=== PATIENT | male | born 1990 | race Hispanic/Latino ===

== ENCOUNTER 2018-10-11 14:28 | Emergency (ER) | payer SELFPAY ==
--- NOTE | 2018-10-11 15:44 | EDPHYS ---
Physician Documentation [facility] Name: Bandar Jon Age: 28 yrs Sex: Male : 1990 Arrival Date: 10/11/2018 Time: 14:34 Bed 27 Private MD: ED Physician Jose Hill HPI: 10/11 15:20 This 28 yrs old Male presents to ER via Ambulatory with complaints of Anxiety, cp Drainage From Ear. 15:20 The patient presents with drainage, that is purulent. cp 15:20 The complaints affect the left ear. Onset: The symptoms/episode began/occurred at an cp unknown time. Associated signs and symptoms: Pertinent negatives: cough, fever, rhinorrhea, sinus trouble, sore throat, vertigo, vomiting. Severity of symptoms: in the emergency department the symptoms are unchanged despite home interventions. Patient also requesting note for work after leaving early today for having panic attack. Historical: - Allergies: 14:54 No Known Allergies; aa5 - PMHx: 14:54 None; aa5 - PSHx: 14:54 None; aa5 - Immunization history:: Adult Immunizations unknown. - Social history:: Smoking status: Patient uses tobacco products, smokes one-half pack cigarettes per day. - Ebola Screening: : No symptoms or risks identified at this time. ROS: 15:24 Constitutional: Negative for body aches, chills, fever, poor PO intake. cp 15:24 Eyes: Negative for injury, pain, redness, and discharge. cp 15:24 ENT: Positive for drainage from ear(s), Negative for rhinorrhea, difficulty swallowing, difficulty handling secretions. 15:24 Cardiovascular: Negative for chest pain, palpitations. 15:24 Respiratory: Negative for cough, shortness of breath, wheezing. 15:24 Abdomen/GI: Negative for abdominal pain, nausea, vomiting, and diarrhea. 15:24 Skin: Negative for cellulitis, rash. 15:24 Neuro: Negative for altered mental status, headache, weakness. 15:24 All other systems are negative. 15:24 All other systems are negative. Exam: 15:28 Constitutional: The patient appears in no acute distress, alert, awake, non-toxic, well cp developed, well nourished. 15:28 Head/Face: Normocephalic, atraumatic. cp 15:28 Eyes: Periorbital structures: appear normal, Conjunctiva: normal, no exudate, no injection, Sclera: no appreciated abnormality, Lids and lashes: appear normal, bilaterally. 15:28 ENT: External ear(s): are unremarkable, Ear canal(s): purulent discharge, in the left canal, TM's: rupture, on the left, with purulent discharge, Examination of the other ear shows no obvious abnormality, Nose: is normal, Mouth: is normal, Posterior pharynx: is normal, airway is patent, no erythema, no exudate. 15:28 Neck: ROM/movement: is normal, is supple, without pain, no range of motions limitations, no meningismus, no nuchal rigidity, Lymph nodes: no appreciated lymphadenopathy. 15:28 Chest/axilla: Inspection: normal, Palpation: is normal, no crepitus, no tenderness. 15:28 Cardiovascular: Rate: normal, Rhythm: regular. 15:28 Respiratory: the patient does not display signs of respiratory distress, Respirations: normal, no use of accessory muscles, no retractions, no splinting, no tachypnea, labored breathing, is not present, Breath sounds: are clear throughout, no decreased breath sounds, no stridor, no wheezing. 15:28 Abdomen/GI: Exam negative for discomfort, distension, guarding, Inspection: abdomen appears normal. 15:28 Skin: cellulitis, is not appreciated, no rash present. 15:28 Neuro: Orientation: to person, place \T\ time. Mentation: lucid, able to follow commands, Cerebellar function: is grossly normal, Motor: moves all fours, strength is normal, Sensation: is normal. Vital Signs: 14:54 BP 129 / 95; Pulse 92; Resp 18 S; Temp 98.1(O); Pulse Ox 100% on R/A; Weight 81.65 kg aa5 (M); Height 5 ft. 11 in. (180.34 cm) (R); Pain 0/10; 16:01 BP 133 / 83; Pulse 90; Resp 18; Pulse Ox 100% on R/A; Pain 0/10; mg2 14:54 Body Mass Index 25.10 (81.65 kg, 180.34 cm) aa5 MDM: 15:15 Patient medically screened. cp 15:40 Differential diagnosis: otitis media, otitis externa, ruptured TM, foreign body, cp cerumen impaction. 15:42 Data reviewed: vital signs, nurses notes, and as a result, I will discharge patient. cp 15:43 Counseling: I had a detailed discussion with the patient and/or guardian regarding: the cp historical points, exam findings, and any diagnostic results supporting the discharge/admit diagnosis, the need for outpatient follow up, an ENT specialist, to return to the emergency department if symptoms worsen or persist or if there are any questions or concerns that arise at home. Administered Medications: No medications were administered Disposition: 10/11/18 15:44 Discharged to Home. Impression: Acute suppurative otitis media with spontaneous rupture of ear drum - Left. - Condition is Stable. - Discharge Instructions: Otitis Media, Adult, Form - Excuse from Work, School, or Physical Activity. - Prescriptions for Amoxicillin 875 mg Oral Tablet - take 1 tablet by ORAL route every 12 hours for 10 days; 20 tablet. Ciprodex 0.3- 0.1 % Otic Drops, Suspension - instill 4 drops by OTIC route every 12 hours for 7 days , for ears ONLY. instill drops in left ear canal as directed; 1 Container. - Medication Reconciliation Form, Thank You Letter, Antibiotic Education, Prescription Opioid Use, Work release form form. - Follow up: Sulema Goddard MD; When: 1 week; Reason: left ear otitis media with ear drum rupture. - Problem is an ongoing problem. - Symptoms have improved. - Notes: wear ear plugs while showering, no swimming Addendum: 10/18/2018 06:29 Co-signature as Attending Physician, Jose Hill MD. g s Signatures: Gabriella Campbell, RN RN aa5 Johnathan Harmon PA PA Jose Malloy MD MD gs Riley Galvan, RN RN mg2 Corrections: (The following items were deleted from the chart) 10/11 16:02 15:44 10/11/2018 15:44 Discharged to Home. Impression: Acute suppurative otitis media mg2 with spontaneous rupture of ear drum - Left. Condition is Stable. Forms are Medication Reconciliation Form, Thank You Letter, Antibiotic Education, Prescription Opioid Use. Follow up: Sulema Goddard; When: 1 week; Reason: left ear otitis media with ear drum rupture. Problem is an ongoing problem. Symptoms have improved. cp
--- NOTE | 2018-10-11 15:44 | ER ---
Nurse's Notes [facility] Name: Bandar Jon Age: 28 yrs Sex: Male : 1990 Arrival Date: 10/11/2018 Time: 14:34 Bed 27 Private MD: Diagnosis: Acute suppurative otitis media with spontaneous rupture of ear drum-Left Presentation: 10/11 14:53 Presenting complaint: Patient states: "I had a panic attack today". Pt states "I've aa5 been having left ear drainage for about 4 or 5 years now". Pt denies pain. Transition of care: patient was not received from another setting of care. Onset of symptoms is unknown. Risk Assessment: Do you want to hurt yourself or someone else? Patient reports no desire to harm self or others. Initial Sepsis Screen: Does the patient meet any 2 criteria? No. Patient's initial sepsis screen is negative. Does the patient have a suspected source of infection? No. Patient's initial sepsis screen is negative. Care prior to arrival: None. 14:53 Method Of Arrival: Ambulatory aa5 14:53 Acuity: EVANGELISTA 5 aa5 Historical: - Allergies: 14:54 No Known Allergies; aa5 - PMHx: 14:54 None; aa5 - PSHx: 14:54 None; aa5 - Immunization history:: Adult Immunizations unknown. - Social history:: Smoking status: Patient uses tobacco products, smokes one-half pack cigarettes per day. - Ebola Screening: : No symptoms or risks identified at this time. Screenin:24 Abuse screen: Denies threats or abuse. Denies injuries from another. Nutritional mg2 screening: No deficits noted. Tuberculosis screening: No symptoms or risk factors identified. Fall Risk None identified. Assessment: 15:28 General: Appears in no apparent distress. comfortable, Behavior is calm, cooperative. mg2 Pain: Complains of pain in left ear Pain does not radiate. Pain currently is 4 out of 10 on a pain scale. Neuro: Level of Consciousness is awake, alert, obeys commands, Oriented to person, place, time, situation. Cardiovascular: Capillary refill < 3 seconds Patient's skin is warm and dry. Respiratory: Airway is patent Respiratory effort is even, unlabored, Respiratory pattern is regular, symmetrical. GI: No signs and/or symptoms were reported involving the gastrointestinal system. : No signs and/or symptoms were reported regarding the genitourinary system. EENT: Ear canal w/ drainage noted from left ear. Derm: Skin is intact, is healthy with good turgor, Skin is pink, warm \\T\\ dry. normal. Musculoskeletal: No signs and/or symptoms reported regarding the musculoskeletal system. Vital Signs: 14:54 BP 129 / 95; Pulse 92; Resp 18 S; Temp 98.1(O); Pulse Ox 100% on R/A; Weight 81.65 kg aa5 (M); Height 5 ft. 11 in. (180.34 cm) (R); Pain 0/10; 16:01 BP 133 / 83; Pulse 90; Resp 18; Pulse Ox 100% on R/A; Pain 0/10; mg2 14:54 Body Mass Index 25.10 (81.65 kg, 180.34 cm) aa5 ED Course: 14:34 Patient arrived in ED. mr 14:54 Triage completed. aa5 14:54 Arm band placed on. aa5 15:15 Johnathan Harmon PA is PHCP. cp 15:15 Jose Hill MD is Attending Physician. cp 15:23 Riley Galvan, RAGHAVENDRA is Primary Nurse. mg2 15:24 Patient has correct armband on for positive identification. mg2 15:24 No provider procedures requiring assistance completed. Patient did not have IV access mg2 during this emergency room visit. 15:42 Sulema Goddard MD is Referral Physician. cp Administered Medications: No medications were administered Outcome: 15:44 Discharge ordered by MD. cp 16:01 Discharged to home ambulatory, with family. mg2 16:01 Condition: stable 16:01 Discharge instructions given to patient, family, Instructed on discharge instructions, follow up and referral plans. medication usage, Demonstrated understanding of instructions, follow-up care, medications, Prescriptions given X 2. 16:02 Patient left the ED. mg2 Signatures: Catina Dietz CampbellGabriella, RN RN aa5 Johnathan Harmon PA PA cp Riley Galvan, RN RN mg2
== END 2018-10-11 16:02 | disposition home or self-care (01) ==
LOC: ER 14:28
DX: H66.012 Acute suppurative otitis media with spontaneous rupture of ear drum, left ear (principal); F17.210 Nicotine dependence, cigarettes, uncomplicated
CPT/HCPCS: 99282

== ENCOUNTER 2021-02-02 14:15 | Emergency (ER) | payer SELFPAY ==
[2021-02-02] MEDS ORDERED: MAGNES/ALUMIN/SIMET 30ML UCUP ONE (15:30)
[2021-02-02] MEDS ORDERED: LIDOCAINE VISCOUS 2% SOLN 15 ML UDC ONE (15:30)
--- NOTE | 2021-02-02 16:25 | ER ---
Nurse's Notes [facility] Name: Bandar Jon Age: 30 yrs Sex: Male : 1990 Arrival Date: 02/02/2021 Time: 14:17 Bed 13 Private MD: Diagnosis: Acute tonsillitis Presentation: 02/02 14:23 Chief complaint: Patient states: Sore throat for 3 days. No known fever. Coronavirus ll1 screen: Client denies travel out of the [place] in the last 14 days. sore throat, Client presents with at least one sign or symptom that may indicate coronavirus-19. Standard/surgical mask placed on the client. Ebola Screen: Patient denies travel to an Ebola-affected area in the 21 days before illness onset. Initial Sepsis Screen: Does the patient meet any 2 criteria? No. Patient's initial sepsis screen is negative. Does the patient have a suspected source of infection? Yes: Other: sore throat. Risk Assessment: Do you want to hurt yourself or someone else? Patient reports no desire to harm self or others. Onset of symptoms was January 03, 2021. 14:23 Method Of Arrival: Ambulatory ll1 14:23 Acuity: EVNAGELISTA 4 ll1 Historical: - Allergies: 14:25 No Known Allergies; ll1 - PMHx: 14:25 None; ll1 - PSHx: 14:25 None; ll1 - Immunization history:: Flu vaccine is not up to date. - Social history:: Smoking status: Patient reports the use of cigarette tobacco products, smokes one-half pack cigarettes per day. Screenin:15 Abuse screen: Denies threats or abuse. Denies injuries from another. Nutritional jl7 screening: No deficits noted. Tuberculosis screening: No symptoms or risk factors identified. Fall Risk None identified. Assessment: 15:15 General: Appears in no apparent distress. uncomfortable, Behavior is calm, cooperative, jl7 appropriate for age. Pain: Complains of pain in sore throat Pain currently is 7 out of 10 on a pain scale. Neuro: Level of Consciousness is awake, alert, obeys commands, Oriented to person, place, time, situation. Cardiovascular: Patient's skin is warm and dry. Respiratory: Airway is patent Respiratory effort is even, unlabored, Respiratory pattern is regular, symmetrical. EENT: Throat has patchy exudate has enlarged tonsils bilaterally. Derm: Skin is pink, warm \T\ dry. Vital Signs: 14:23 BP 121 / 76; Pulse 83; Resp 16; Temp 98.5; Pulse Ox 100% ; Weight 88.45 kg; Height 5 ll1 ft. 11 in. (180.34 cm); Pain 7/10; 14:23 Body Mass Index 27.20 (88.45 kg, 180.34 cm) ll1 ED Course: 14:17 Patient arrived in ED. as 14:25 Triage completed. ll1 14:25 Arm band placed on. ll1 14:59 Lennie Mitchell, RN is Primary Nurse. jl7 15:03 Johnathan Harmon PA is PHCP. cp 15:03 Xavier Guerra MD is Attending Physician. cp 15:15 Patient has correct armband on for positive identification. Placed in gown. Bed in low jl7 position. Call light in reach. Side rails up X 1. 15:22 Strep swab sent to lab. jl7 16:24 Strep Sent. jl7 16:34 No provider procedures requiring assistance completed. Patient did not have IV access jl7 during this emergency room visit. Administered Medications: 15:22 Drug: GI Cocktail without - (Maalox Suspension 30 ml, Lidocaine Liquid 2 % 15 jl7 ml) Route: PO; 15:45 Follow up: Response: No adverse reaction; Pain is decreased jl7 16:34 Drug: Augmentin 875 mg Route: PO; jl7 16:34 Follow up: Response: Medication administered at discharge. jl7 Outcome: 16:25 Discharge ordered by . cp 16:34 Discharged to home ambulatory. jl7 16:34 Condition: stable 16:34 Discharge instructions given to patient, Instructed on discharge instructions, follow up and referral plans. medication usage, Demonstrated understanding of instructions, follow-up care, medications, Prescriptions given X 2. 16:35 Patient left the ED. jl7 Signatures: Myesha Hauser Corey, PA PA cp Lennie Mitchell, RN RN jl7 Rickie Champion RN RN ll1
--- NOTE | 2021-02-02 16:26 | EDPHYS ---
Physician Documentation [facility] Name: Bandar Jon Age: 30 yrs Sex: Male : 1990 Arrival Date: 02/02/2021 Time: 14:17 Bed 13 Private MD: ED Physician Xavier Guerra HPI: 02/02 15:15 This 30 yrs old Male presents to ER via Ambulatory with complaints of Sore cp Throat. 15:15 The patient presents with sore throat. Onset: The symptoms/episode began/occurred 2 cp day(s) ago. Severity of symptoms: in the emergency department the symptoms are unchanged, despite home interventions. Associated signs and symptoms: Pertinent positives: earache, Pertinent negatives cough, dysphagia, fever, flu-like symptoms, vomiting. Historical: - Allergies: 14:25 No Known Allergies; ll1 - PMHx: 14:25 None; ll1 - PSHx: 14:25 None; ll1 - Immunization history:: Flu vaccine is not up to date. - Social history:: Smoking status: Patient reports the use of cigarette tobacco products, smokes one-half pack cigarettes per day. ROS: 15:20 Constitutional: Negative for body aches, chills, fever, poor PO intake. cp 15:20 Eyes: Negative for injury, pain, redness, and discharge. cp 15:20 ENT: Positive for ear pain, sore throat, Negative for drainage from ear(s), difficulty swallowing, difficulty handling secretions. 15:20 Respiratory: Negative for cough, shortness of breath, wheezing. 15:20 Skin: Negative for rash. 15:20 Neuro: Negative for headache. 15:20 All other systems are negative. Exam: 15:25 Constitutional: The patient appears in no acute distress, alert, awake, non-toxic, well cp developed, well nourished. 15:25 Head/Face: Normocephalic, atraumatic. cp 15:25 Eyes: Periorbital structures: appear normal, Conjunctiva: normal, no exudate, no injection, Lids and lashes: appear normal, bilaterally. 15:25 ENT: External ear(s): are unremarkable, Ear canal(s): cerumen impaction, that is moderate, bilaterally, TM's: not visable, because of cerumen, Nose: is normal, Mouth: Lips: moist, Oral mucosa: moist, Posterior pharynx: Airway: no evidence of obstruction, patent, Tonsils: bilaterally enlarged, with erythema, with exudate, Uvula: midline, erythema, that is mild, Voice: is hoarse. 15:25 Neck: ROM/movement: is normal, is supple, without pain, no range of motions limitations, no meningismus. 15:25 Chest/axilla: Inspection: normal. 15:25 Cardiovascular: Rate: normal. 15:25 Respiratory: the patient does not display signs of respiratory distress, Respirations: normal, no use of accessory muscles, no retractions. Vital Signs: 14:23 BP 121 / 76; Pulse 83; Resp 16; Temp 98.5; Pulse Ox 100% ; Weight 88.45 kg; Height 5 ll1 ft. 11 in. (180.34 cm); Pain 7/10; 14:23 Body Mass Index 27.20 (88.45 kg, 180.34 cm) ll1 MDM: 15:09 Patient medically screened. cp 15:30 Differential diagnosis: epiglottitis, yulisa-san virus, group A strep tonsillitis, cp peritonsillar abscess pharyngitis, retropharyngeal abcess. 16:25 Data reviewed: vital signs, nurses notes, lab test result(s), and as a result, I will cp discharge patient. 16:25 Counseling: I had a detailed discussion with the patient and/or guardian regarding: the cp historical points, exam findings, and any diagnostic results supporting the discharge/admit diagnosis, lab results, to return to the emergency department if symptoms worsen or persist or if there are any questions or concerns that arise at home. 02/02 15:10 Order name: Strep cp 02/02 15:10 Order name: Group A Streptococcus Rapid Sc; Complete Time: 16:24 EDMS 02/02 16:24 Interpretation: Reviewed. cp Administered Medications: 15:22 Drug: GI Cocktail without - (Maalox Suspension 30 ml, Lidocaine Liquid 2 % 15 jl7 ml) Route: PO; 15:45 Follow up: Response: No adverse reaction; Pain is decreased jl7 16:34 Drug: Augmentin 875 mg Route: PO; jl7 16:34 Follow up: Response: Medication administered at discharge. jl7 Disposition: 02/03 05:54 Co-signature as Attending Physician, Xavier Guerra MD I agree with the assessment and kdr plan of care. Disposition: 02/02/21 16:25 Discharged to Home. Impression: Acute tonsillitis. - Condition is Stable. - Discharge Instructions: Strep Throat, Tonsillitis. - Prescriptions for Lidocaine Viscous - take 5 milliliter by ORAL route every 4-6 hours As needed swish, gargle and swallow; 1 bottle. Augmentin 875- 125 mg Oral Tablet - take 1 tablet by ORAL route every 12 hours for 10 days; 20 tablet. - Medication Reconciliation Form, Thank You Letter, Antibiotic Education, Prescription Opioid Use form. - Follow up: Private Physician; When: 1 - 2 days; Reason: Worsening of condition. - Problem is new. - Symptoms have improved. Signatures: Dispatcher [employer] EDMS Xavire Guerra MD MD kdr Johnathan Harmon PA PA cp Leal, Jahala, RN RN jl7 Rickie Champion RN RN ll1 Corrections: (The following items were deleted from the chart) 02/02 16:35 16:25 02/02/2021 16:25 Discharged to Home. Impression: Acute tonsillitis. Condition is jl7 Stable. Forms are Medication Reconciliation Form, Thank You Letter, Antibiotic Education, Prescription Opioid Use. Follow up: Private Physician; When: 1 - 2 days; Reason: Worsening of condition. Problem is new. Symptoms have improved. cp
[2021-02-02] MEDS ORDERED: AMOX/K CLAV 875 MG TAB ONE (16:46)
[2021-02-02 17:33] VITALS: BP 121/76; TEMP 98.5; O2SAT 100
== END 2021-02-02 16:35 | disposition home or self-care (01) ==
LOC: ER 14:15
DX: J03.90 Acute tonsillitis, unspecified (principal); F17.210 Nicotine dependence, cigarettes, uncomplicated
CPT/HCPCS: 87081; 99283

== ENCOUNTER 2021-03-06 12:17 | Emergency (ER) | payer SELFPAY ==
--- NOTE | 2021-03-06 15:10 | ER ---
Nurse's Notes [facility] Name: Bandar Jon Age: 30 yrs Sex: Male : 1990 Arrival Date: 03/06/2021 Time: 12:22 Bed 30 Private MD: Diagnosis: Otitis media, unspecified, left ear Presentation: 03/06 12:57 Chief complaint: Patient states: L ear pain for 4 days. No fever. Coronavirus screen: ll1 Client denies travel out of the [place] in the last 14 days. At this time, the client does not indicate any symptoms associated with coronavirus-19. Ebola Screen: Patient denies travel to an Ebola-affected area in the 21 days before illness onset. Initial Sepsis Screen: Does the patient meet any 2 criteria? No. Patient's initial sepsis screen is negative. Does the patient have a suspected source of infection? Yes: Other: ear pain. Risk Assessment: Do you want to hurt yourself or someone else? Patient reports no desire to harm self or others. Onset of symptoms was March 02, 2021. 12:57 Method Of Arrival: Ambulatory [facility] 12:57 Acuity: EVANGELISTA 4 ll1 Historical: - Allergies: 12:59 No Known Allergies; ll1 - PMHx: 12:59 None; ll1 - PSHx: 12:59 None; ll1 - Immunization history:: Flu vaccine is not up to date. - Social history:: Smoking status: Patient reports the use of cigarette tobacco products, smokes one-half pack cigarettes per day. Screenin:02 Abuse screen: Denies threats or abuse. Denies injuries from another. Nutritional ss screening: No deficits noted. Tuberculosis screening: Never had TB. Fall Risk None identified. Assessment: 15:02 General: Appears in no apparent distress. comfortable, Behavior is calm, cooperative, ss Denies fever, feeling ill, fatigue, chills. Pain: Complains of pain in left ear Pain currently is 8 out of 10 on a pain scale. Quality of pain is described as aching, throbbing, Pain began 4 days ago Is continuous. Neuro: Level of Consciousness is awake, alert, obeys commands, Oriented to person, place, time, situation. Cardiovascular: Capillary refill < 3 seconds is brisk in bilateral fingers. Respiratory: Airway is patent Respiratory effort is even, unlabored, Respiratory pattern is regular, symmetrical. EENT: Nares are clear Oral mucosa is moist. EENT: Reports ringing in left ear. Derm: Skin is intact, is healthy with good turgor, Skin is dry, Skin is pink, warm \T\ dry. normal. Musculoskeletal: Circulation, motion, and sensation intact. Range of motion: intact in all extremities, Swelling absent. Vital Signs: 12:57 BP 108 / 55; Pulse 69; Resp 17; Temp 98.1; Pulse Ox 98% ; Weight 92.99 kg; Height 5 ft. ll1 11 in. (180.34 cm); Pain 8/10; 12:57 Body Mass Index 28.59 (92.99 kg, 180.34 cm) ll1 ED Course: 12:22 Patient arrived in ED. ds1 12:59 Triage completed. ll1 12:59 Arm band placed on Patient notified of wait time. ll1 14:04 Chandrika Cespedes FNP-C [facility]. kb 14:04 Danie German MD is Attending Physician. kb 15:02 Radha Marr, RN is Primary Nurse. ss 15:02 Patient has correct armband on for positive identification. Bed in low position. Call ss light in reach. 15:58 No provider procedures requiring assistance completed. Patient did not have IV access ss during this emergency room visit. Administered Medications: No medications were administered Outcome: 15:09 Discharge ordered by . kb 15:58 Discharged to home ambulatory. ss 15:58 Condition: good 15:58 Discharge instructions given to patient, Instructed on discharge instructions, follow up and referral plans. medication usage, Demonstrated understanding of instructions, follow-up care, medications, Prescriptions given X 1. 15:58 Patient left the ED. ss Signatures: Chandrika Cespedes FNP-C FNP-Kenyatta Woodall ds1 Radha Marr RN RN ss Lewis, Lynsay, RN RN 1
--- NOTE | 2021-03-06 15:10 | EDPHYS ---
Physician Documentation [facility] Name: Bandar Jon Age: 30 yrs Sex: Male : 1990 Arrival Date: 03/06/2021 Time: 12:22 Bed 30 Private MD: ED Physician Danie German HPI: 03/06 15:11 This 30 yrs old Male presents to ER via Ambulatory with complaints of Ear Pain.kb 15:11 The patient presents with pain, moderate. The complaints affect the left ear. Onset: kb The symptoms/episode began/occurred 5 day(s) ago. Modifying factors: The symptoms are alleviated by nothing, the symptoms are aggravated by nothing. Associated signs and symptoms: The patient has no apparent associated signs or symptoms. Severity of symptoms: At their worst the symptoms were moderate in the emergency department the symptoms are unchanged. The patient has not experienced similar symptoms in the past. The patient has not recently seen a physician. Historical: - Allergies: 12:59 No Known Allergies; ll1 - PMHx: 12:59 None; ll1 - PSHx: 12:59 None; ll1 - Immunization history:: Flu vaccine is not up to date. - Social history:: Smoking status: Patient reports the use of cigarette tobacco products, smokes one-half pack cigarettes per day. ROS: 15:10 Constitutional: Negative for fever, chills, and weight loss, Neuro: Negative for kb headache, weakness, numbness, tingling, and seizure. 15:10 ENT: Positive for ear pain. Exam: 15:10 Constitutional: This is a well developed, well nourished patient who is awake, alert, kb and in no acute distress. Head/Face: Normocephalic, atraumatic. Respiratory: Respirations even and unlabored. No increased work of breathing, no retractions or nasal flaring. Skin: Warm, dry with normal turgor. Normal color. Neuro: Awake and alert, GCS 15, oriented to person, place, time, and situation. Moves all extremities. Normal gait. 15:10 ENT: External ear(s): are unremarkable, Ear canal(s): moderate cerumen bilaterally, TM's: erythema, that is moderate, on the left. Vital Signs: 12:57 BP 108 / 55; Pulse 69; Resp 17; Temp 98.1; Pulse Ox 98% ; Weight 92.99 kg; Height 5 ft. ll1 11 in. (180.34 cm); Pain 8/10; 12:57 Body Mass Index 28.59 (92.99 kg, 180.34 cm) ll1 MDM: 14:43 Patient medically screened. kb 15:10 Data reviewed: vital signs, nurses notes. Data interpreted: Pulse oximetry: on room air kb is 98 %. Interpretation: normal. Counseling: I had a detailed discussion with the patient and/or guardian regarding: the historical points, exam findings, and any diagnostic results supporting the discharge/admit diagnosis, the need for outpatient follow up, a family practitioner, to return to the emergency department if symptoms worsen or persist or if there are any questions or concerns that arise at home. Administered Medications: No medications were administered Disposition: 17:02 Co-signature as Attending Physician, Danie German MD. rn Disposition: 03/06/21 15:09 Discharged to Home. Impression: Otitis media, unspecified, left ear. - Condition is Stable. - Discharge Instructions: Otitis Media, Adult, [id number]. - Prescriptions for Amoxicillin 875 mg Oral Tablet - take 1 tablet by ORAL route every 12 hours for 10 days; 20 tablet. - Medication Reconciliation Form, Thank You Letter, Antibiotic Education, Prescription Opioid Use form. - Follow up: Emergency Department; When: As needed; Reason: Worsening of condition. Follow up: Private Physician; When: 2 - 3 days; Reason: Recheck today's complaints, Continuance of care, Re-evaluation by your physician. Signatures: Chandrika Cespedes, BUDGET ACCOUNTANT-C BUDGET ACCOUNTANT-Ckb Danie German MD MD rn Smirch, Shelby, RN RN ss Lewis, Lynsay, RN RN ll1 Corrections: (The following items were deleted from the chart) 15:58 15:09 03/06/2021 15:09 Discharged to Home. Impression: Otitis media, unspecified, left ss ear. Condition is Stable. Forms are Medication Reconciliation Form, Thank You Letter, Antibiotic Education, Prescription Opioid Use. Follow up: Emergency Department; When: As needed; Reason: Worsening of condition. Follow up: Private Physician; When: 2 - 3 days; Reason: Recheck today's complaints, Continuance of care, Re-evaluation by your physician. kb
== END 2021-03-06 15:58 | disposition home or self-care (01) ==
LOC: ER 12:17
DX: H66.92 Otitis media, unspecified, left ear (principal); F17.210 Nicotine dependence, cigarettes, uncomplicated
CPT/HCPCS: 99282

== ENCOUNTER 2021-05-12 17:14 | Emergency (ER) | payer SELFPAY ==
[2021-05-12] MEDS ORDERED: DICYCLOMINE HCL 10 MG CAP ONE (18:19)
[2021-05-12] MEDS ORDERED: ONDANSETRON 4 MG/2 ML VIAL ONE (18:19)
[2021-05-12] MEDS ORDERED: FAMOTIDINE 20 MG/2 ML VIAL IV ONE (18:19)
[2021-05-12] MEDS ORDERED: NA CHLORIDE 0.9% 1,000 ML ONE (18:19)
[2021-05-12 18:24] LABS: Absolute Lymphocytes (CBC) 2.4 K/uL (0.7-4.9); Hematocrit 43.3 % (39.6-49.0); Lymphocytes % 29.8 % (15.3-44.8); MPV 8.4 fL (7.6-11.3); RBC Red Blood Cell Count 4.82 M/uL (4.33-5.43)
--- NOTE | 2021-05-12 18:33 | RAD REPORT ---
EXAM DESCRIPTION: CTAbdomen Pelvis W Contrast - 05/12/2021 6:24 pm CLINICAL HISTORY: Abdominal pain. ABD PAIN COMPARISON: No comparisons TECHNIQUE: Biphasic CT imaging of the abdomen and pelvis was performed with 100 ml non-ionic IV cont rast. All CT scans are performed using dose optimization technique as appropriate and may include automated exposure control or mA/KV adjustment according to patient size. FINDINGS: The lung bases are clear. The liver, spleen, pancreas, adrenal glands and kidneys are within normal limits. No bowel obstruction, free air, free fluid or abscess. Mild sigmoid diverticulosis is present without diverticulitis. The appendix is normal. No evidence of significant lymphadenopathy. No suspicious bony findings. Small bilateral inguinal fat containing hernias, larger on the right. IMPRESSION: No acute intra-abdominal or pelvic finding.
[2021-05-12 18:45] LABS: ALT/SGPT 36 U/L (12-78); AST/SGOT 15 U/L (15-37); Albumin 3.3 g/dL (3.4-5.0); Alkaline Phosphatase 100 U/L (45-117); BUN Blood Urea Nitrogen 8 mg/dL (7-18); Bicarbonate 28 mmol/L (21-32); Bilirubin Direct < 0.1 mg/dL (0-0.2); Bilirubin Total 0.2 mg/dL (0.2-1.0); Glucose Level 63 mg/dL (74-106); Lipase 99 U/L (73-393); Potassium 3.6 mmol/L (3.5-5.1); Protein, Total 7.5 g/dL (6.4-8.2); Sodium Level 144 mmol/L (136-145)
--- NOTE | 2021-05-12 19:19 | EDPHYS ---
Physician Documentation [facility] Name: Bandar Jon Age: 30 yrs Sex: Male : 1990 Arrival Date: 05/12/2021 Time: 17:16 Bed 17 Private MD: ED Physician Xavier Guerra HPI: 05/12 17:45 This 30 yrs old Male presents to ER via Ambulatory with complaints of cp Abdominal Pain, Vomiting/Diarrhea. 17:45 The patient presents with abdominal pain that is diffuse. Onset: The symptoms/episode cp began/occurred last week. Associated signs and symptoms: Pertinent positives: nausea, vomiting, and diarrhea, Pertinent negatives: blood in stools, chest pain, constipation, fever, testicular pain, vomiting blood. The symptoms are described as waxing/waning. 17:45 Patient reports vomiting this morning and 1 episode of diarrhea this morning. cp Historical: - Allergies: 17:23 No Known Allergies; kg - PMHx: 17:23 None; kg - PSHx: 17:23 None; kg - Immunization history:: Adult Immunizations not up to date. - Social history:: Smoking status: Patient reports the use of cigarette tobacco products, smokes one-half pack cigarettes per day, Patient uses alcohol, weekly. ROS: 17:50 Constitutional: Negative for body aches, chills, fever, poor PO intake. cp 17:50 Eyes: Negative for injury, pain, redness, and discharge. cp 17:50 ENT: Negative for ear pain, sore throat, difficulty swallowing, difficulty handling secretions. 17:50 Cardiovascular: Negative for chest pain, palpitations. 17:50 Respiratory: Negative for cough, shortness of breath, wheezing. 17:50 Abdomen/GI: Positive for abdominal pain, nausea, vomiting, and diarrhea, anorexia, Negative for hematemesis, black/tarry stool, rectal bleeding. 17:50 Neuro: Negative for altered mental status, headache, weakness. 17:50 All other systems are negative. Exam: 18:00 Constitutional: The patient appears in no acute distress, alert, awake, non-toxic, well cp developed, well nourished. 18:00 Head/Face: Normocephalic, atraumatic. cp 18:00 Eyes: Periorbital structures: appear normal, Conjunctiva: normal, no exudate, no injection, Sclera: no appreciated abnormality, Lids and lashes: appear normal, bilaterally. 18:00 ENT: External ear(s): are unremarkable, Nose: is normal, Mouth: Lips: moist, Oral mucosa: moist, Posterior pharynx: Airway: no evidence of obstruction, patent. 18:00 Chest/axilla: Inspection: normal, Palpation: is normal, no crepitus, no tenderness. 18:00 Cardiovascular: Rate: normal, Rhythm: regular. 18:00 Respiratory: the patient does not display signs of respiratory distress, Respirations: normal, no use of accessory muscles, no retractions, labored breathing, is not present, Breath sounds: are clear throughout, no decreased breath sounds. 18:00 Abdomen/GI: Inspection: abdomen appears normal, Bowel sounds: active, all quadrants, Palpation: soft, in all quadrants, moderate abdominal tenderness, in all quadrants, rebound tenderness, is not appreciated, voluntary guarding, is not appreciated, involuntary guarding, is not appreciated. 18:00 Back: pain, is absent, ROM is normal. Vital Signs: 17:20 BP 127 / 61; Pulse 72; Resp 20; Temp 97.8(O); Pulse Ox 100% on R/A; Weight 87.86 kg kg (M); Height 5 ft. 11 in. (180.34 cm) (R); Pain 4/10; 18:20 BP 115 / 75; Pulse 67; Resp 14; Pulse Ox 100% on R/A; vg1 17:20 Body Mass Index 27.02 (87.86 kg, 180.34 cm) kg MDM: 17:34 Patient medically screened. cp 18:00 Differential diagnosis: appendicitis, cholecystitis, Cholelithiasis, gastritis, cp pancreatitis, colitis, diverticulitis. 19:17 Data reviewed: vital signs, nurses notes, lab test result(s), radiologic studies, CT cp scan. 19:17 Counseling: I had a detailed discussion with the patient and/or guardian regarding: the cp historical points, exam findings, and any diagnostic results supporting the discharge/admit diagnosis, lab results, radiology results, to return to the emergency department if symptoms worsen or persist or if there are any questions or concerns that arise at home. Response to treatment: the patient's symptoms have markedly improved after treatment, and as a result, I will discharge patient. Special discussion: Based on the patient's Hx, exam, and Dx evaluation, there is no indication for emergent surgery or inpatient Tx. It is understood by the patient/guardian that if the Sx's persist or worsen they need to return immediately for re-evaluation. 06 17:38 Order name: Basic Metabolic Panel 05/12 17:38 Order name: CBC with Diff 05/12 17:38 Order name: Hepatic Function 05/12 17:38 Order name: Lipase 05/12 17:38 Order name: CT Abd/Pelvis - IV Contrast Only; Complete Time: 18:41 05/12 18:42 Interpretation: Report reviewed. 05/12 17:39 Order name: Basic Metabolic Panel; Complete Time: 18:58 EDMS 05/12 18:58 Interpretation: Normal except: CL 110; GLUC 63; CA 8.3. 05/12 17:39 Order name: CBC with Automated Diff; Complete Time: 18:41 EDMS 05/12 18:42 Interpretation: Normal except: EOSINOPHIL % 10.8. 05/12 17:39 Order name: Liver (Hepatic) Function; Complete Time: 18:58 EDMS 05/12 18:59 Interpretation: Normal except: ALB 3.3; GLOB 4.2; A/G 0.8. 05/12 17:39 Order name: Lipase; Complete Time: 18:58 EDMS 11 18:59 Interpretation: Within normal limits: LIP 99. 05/12 17:38 Order name: IV Saline Lock; Complete Time: 18:15 05/12 17:38 Order name: Labs collected and sent; Complete Time: 18:15 05/12 18:42 Order name: PO challenge; Complete Time: 19:27 cp Administered Medications: 18:05 Drug: Bentyl (dicyclomine) 20 mg Route: PO; vg1 19:30 Follow up: Response: No adverse reaction ap3 18:10 Drug: NS 0.9% 1000 ml Route: IV; Rate: 1 bolus; Site: right antecubital; vg1 19:31 Follow up: IV Status: Completed infusion; IV Intake: 1000ml ap3 18:11 Drug: Zofran (Ondansetron) 4 mg Route: IVP; Site: right antecubital; vg1 19:29 Follow up: Response: No adverse reaction ap3 18:13 Drug: Pepcid (famotidine) 20 mg Route: IVP; Site: right antecubital; vg1 19:29 Follow up: Response: No adverse reaction ap3 Disposition: 05/12/21 19:18 Discharged to Home. Impression: Nausea and vomiting, Diarrhea, unspecified. - Condition is Stable. - Discharge Instructions: Food Choices to Help Relieve Diarrhea, Adult, Diarrhea, Adult, Nausea and Vomiting, Adult. - Prescriptions for Bentyl 20 mg Oral Tablet - take 1 tablet by ORAL route every 6 hours As needed; 30 tablet. Zofran 4 mg Oral Tablet - take 1 tablet by ORAL route every 12 hours As needed; 20 tablet. - Medication Reconciliation Form, Thank You Letter, Antibiotic Education, Prescription Opioid Use, Work release form form. - Follow up: Private Physician; When: 2 - 3 days; Reason: Worsening of condition. - Problem is new. - Symptoms have improved. Addendum: 05/15/2021 11:16 Co-signature as Attending Physician, Xavier Guerra MD I agree with the assessment and k dr plan of care. Signatures: Dispatcher [employer] EDOR Xavier Guerra MD MD kdr Johnathan Harmon PA PA cp Joy Roblero RN RN ap3 Isabel Rosales RN RN vg1 Soha Durbin, RN RN kg Corrections: (The following items were deleted from the chart) 05/12 18:58 18:58 Normal except: CL 110; GLUC 63. cp cp 19:30 19:18 05/12/2021 19:18 Discharged to Home. Impression: Nausea and vomiting; Diarrhea, ap3 unspecified. Condition is Stable. Forms are Medication Reconciliation Form, Thank You Letter, Antibiotic Education, Prescription Opioid Use. Follow up: Private Physician; When: 2 - 3 days; Reason: Worsening of condition. Problem is new. Symptoms have improved. cp
--- NOTE | 2021-05-12 19:19 | ER ---
Nurse's Notes [facility] Name: Bandar Jon Age: 30 yrs Sex: Male : 1990 Arrival Date: 05/12/2021 Time: 17:16 Bed 17 Private MD: Diagnosis: Nausea and vomiting;Diarrhea, unspecified Presentation: 05/12 17:20 Chief complaint: Patient states: Pt presents to ER with complaints of nausea, vomiting, kg Diarrhea and abdominal pain x 1 wk. Coronavirus screen: Client denies travel out of the [place] in the last 14 days. At this time, unable to obtain information related to travel outside the [place] Client presents with at least one sign or symptom that may indicate coronavirus-19. Standard/surgical mask placed on the client. Ebola Screen: Patient negative for fever greater than or equal to 101.5 degrees Fahrenheit, and additional compatible Ebola Virus Disease symptoms Patient denies exposure to infectious person. Patient denies travel to an Ebola-affected area in the 21 days before illness onset. Initial Sepsis Screen: Does the patient meet any 2 criteria? No. Patient's initial sepsis screen is negative. Does the patient have a suspected source of infection? No. Patient's initial sepsis screen is negative. Risk Assessment: Do you want to hurt yourself or someone else? Patient reports no desire to harm self or others. Onset of symptoms was May 05, 2021. 17:20 Method Of Arrival: Ambulatory kg 17:20 Acuity: EVANGELISTA 3 kg Triage Assessment: 17:23 General: Appears in no apparent distress. Behavior is calm, cooperative, appropriate kg for age, quiet. Pain: Complains of pain in abdomen Pain currently is 4 out of 10 on a pain scale. at worst was 8 out of 10 on a pain scale. level that patient reports is acceptable is 4 out of 10 on a pain scale. Quality of pain is described as "Knots" Pain began One week ago. GI: Reports diarrhea, nausea, vomiting, since one week. Historical: - Allergies: 17:23 No Known Allergies; kg - PMHx: 17:23 None; kg - PSHx: 17:23 None; kg - Immunization history:: Adult Immunizations not up to date. - Social history:: Smoking status: Patient reports the use of cigarette tobacco products, smokes one-half pack cigarettes per day, Patient uses alcohol, weekly. Screenin:18 Abuse screen: Denies threats or abuse. Nutritional screening: No deficits noted. vg1 Tuberculosis screening: No symptoms or risk factors identified. Fall Risk No fall in past 12 months (0 pts). No secondary diagnosis (0 pts). IV access (20 points). Ambulatory Aid- None/Bed Rest/Nurse Assist (0 pts). Gait- Normal/Bed Rest/Wheelchair (0 pts) Mental Status- Oriented to own ability (0 pts). Total Santos Fall Scale indicates No Risk (0-24 pts). Assessment: 18:00 General: Appears in no apparent distress. comfortable, Behavior is calm, cooperative. vg1 Pain: Complains of pain in abdomen Pain currently is 4 out of 10 on a pain scale. at worst was 7 out of 10 on a pain scale. Pain began about a week. Neuro: Level of Consciousness is awake, alert, obeys commands, Oriented to person, place, time, situation. Cardiovascular: Patient's skin is warm and dry. Respiratory: Airway is patent Respiratory effort is even, unlabored. GI: Bowel sounds present X 4 quads. Abd is soft and non tender Reports diarrhea, nausea, vomiting. : No signs and/or symptoms were reported regarding the genitourinary system. EENT: No signs and/or symptoms were reported regarding the EENT system. Derm: Skin is intact, is healthy with good turgor. Musculoskeletal: Circulation, motion, and sensation intact. Vital Signs: 17:20 BP 127 / 61; Pulse 72; Resp 20; Temp 97.8(O); Pulse Ox 100% on R/A; Weight 87.86 kg kg (M); Height 5 ft. 11 in. (180.34 cm) (R); Pain 4/10; 18:20 BP 115 / 75; Pulse 67; Resp 14; Pulse Ox 100% on R/A; vg1 17:20 Body Mass Index 27.02 (87.86 kg, 180.34 cm) kg ED Course: 17:16 Patient arrived in ED. as 17:21 Johnathan Harmon PA is PHCP. cp 17:22 Johnathan Harmon PA is PHCP. cp 17:22 Xavier Guerra MD is Attending Physician. cp 17:23 Triage completed. kg 17:56 Isabel Rosales RN is Primary Nurse. vg1 18:08 Initial lab(s) drawn, by ct, sent to lab. Inserted saline lock: 20 gauge in right vg1 antecubital area, using aseptic technique. Blood collected. 18:18 Patient has correct armband on for positive identification. Bed in low position. Call vg1 light in reach. Side rails up X 1. 18:18 Arm band placed on. vg1 18:29 CT Abd/Pelvis - IV Contrast Only In Process Unspecified. EDMS 19:12 Primary Nurse role handed off by Isabel Rosales RN ap3 19:12 Joy Roblero, RAGHAVENDRA is Primary Nurse. ap3 19:24 Primary Nurse role handed off by Joy Roblero RN mw2 19:26 Joy Roblero RN is Primary Nurse. ap3 19:26 No provider procedures requiring assistance completed. IV discontinued, intact, ap3 bleeding controlled, No redness/swelling at site. Pressure dressing applied. Administered Medications: 18:05 Drug: Bentyl (dicyclomine) 20 mg Route: PO; vg1 19:30 Follow up: Response: No adverse reaction ap3 18:10 Drug: NS 0.9% 1000 ml Route: IV; Rate: 1 bolus; Site: right antecubital; vg1 19:31 Follow up: IV Status: Completed infusion; IV Intake: 1000ml ap3 18:11 Drug: Zofran (Ondansetron) 4 mg Route: IVP; Site: right antecubital; vg1 19:29 Follow up: Response: No adverse reaction ap3 18:13 Drug: Pepcid (famotidine) 20 mg Route: IVP; Site: right antecubital; vg1 19:29 Follow up: Response: No adverse reaction ap3 Intake: 19:31 IV: 1000ml; Total: 1000ml. ap3 Outcome: 19:18 Discharge ordered by . cp 19:30 Discharged to home ambulatory. ap3 19:30 Condition: good 19:30 Discharge instructions given to patient, Instructed on discharge instructions, follow up and referral plans. medication usage, Demonstrated understanding of instructions, follow-up care, medications, Prescriptions given X 2. 19:30 Patient left the ED. ap3 Signatures: Dispatcher [employer] EDMyesha Moreno Corey, PA PA cp Joy Roblero RN RN ap3 Joshua, Tejal mw2 Isabel Rosales, RN RN vg1 Soha Durbin RN RN kg
[2021-05-12 19:46] VITALS: TEMP 97.8; O2SAT 100
[2021-05-12 19:47] VITALS: BP 115/75
== END 2021-05-12 19:30 | disposition home or self-care (01) ==
LOC: ER 17:14
DX: R11.2 Nausea with vomiting, unspecified (principal); R19.7 Diarrhea, unspecified; R10.84 Generalized abdominal pain; F17.210 Nicotine dependence, cigarettes, uncomplicated
CPT/HCPCS: 36415; 74177; 80048; 80076; 82565; 83690; 85025; 96361; 96374; 96375; 99284; J2405; J7030; Q9967